=== PATIENT | male | born 1955 | race Two or more races ===

== ENCOUNTER 2018-02-08 07:00 | Day surgery (SDC) | payer OTHER | END 2018-02-08 11:42 | disposition home or self-care (01) | LOC: AMB-ENDOS 07:00 | DX: D12.8 Benign neoplasm of rectum (principal) ==

== ENCOUNTER 2020-03-05 08:33 | Day surgery (SDC) | payer OTHER | END 2020-03-05 14:35 | disposition home or self-care (01) | LOC: AMB-ENDOS 08:33 → CIR.AMB 15:15 | PROVIDERS: ATTEND Surgery | DX: K62.89 Other specified diseases of anus and rectum (principal); Z20.828 Contact with and (suspected) exposure to other viral communicable diseases ==

== ENCOUNTER 2020-05-23 07:20 | Inpatient (IN) | payer OTHER ==
[~2020-05-23] VITALS: Ht 213.4 cm; Wt 5.0 kg
[2020-05-23] MEDS ORDERED: COZAAR50 MG (07:31)
[2020-06-10] MEDS ORDERED: INTEGRA F CAPS1 EACH PO (12:01)
[2020-06-10] MEDS ORDERED: TAMS0.4C PO (12:01)
[2020-06-10] MEDS ORDERED: INTESTINEX680 M1 PO (12:01)
== END 2020-06-10 14:47 | disposition home or self-care (01) | DRG 330 ==
LOC: ER 07:20 → SURG 12:03 → SURH 12:03
PROVIDERS: ADMIT Surgery; ATTEND Surgery
PROC: 30233N1 Transfusion of Nonautologous Red Blood Cells into Peripheral Vein, Percutaneous Approach (ICD-10-PCS; 2020-05-23)
PROC: BW21ZZZ Computerized Tomography (CT Scan) of Abdomen and Pelvis (ICD-10-PCS; 2020-05-23)
PROC: B246ZZZ Ultrasonography of Right and Left Heart (ICD-10-PCS; 2020-05-24)
PROC: B246ZZZ Ultrasonography of Right and Left Heart (ICD-10-PCS; 2020-05-24)
PROC: 8E0ZXY6 Isolation (ICD-10-PCS; 2020-05-26)
PROC: 0D1N4Z4 Bypass Sigmoid Colon to Cutaneous, Percutaneous Endoscopic Approach (ICD-10-PCS; principal; 2020-05-30 08:00)
DX: C20 Malignant neoplasm of rectum (principal); C79.11 Secondary malignant neoplasm of bladder; C79.89 Secondary malignant neoplasm of other specified sites; N32.1 Vesicointestinal fistula; N17.8 Other acute kidney failure; N39.0 Urinary tract infection, site not specified; N13.39 Other hydronephrosis; Z20.828 Contact with and (suspected) exposure to other viral communicable diseases; D63.0 Anemia in neoplastic disease; I13.10 Hypertensive heart and chronic kidney disease without heart failure, with stage 1 through stage 4 chronic kidney disease, or unspecified chronic kidney disease; N18.31 Chronic kidney disease, stage 3a; B96.1 Klebsiella pneumoniae [K. pneumoniae] as the cause of diseases classified elsewhere; B96.89 Other specified bacterial agents as the cause of diseases classified elsewhere; B96.29 Other Escherichia coli [E. coli] as the cause of diseases classified elsewhere; B96.4 Proteus (mirabilis) (morganii) as the cause of diseases classified elsewhere